=== PATIENT | female | born 1975 | race African-American/Black ===

== ENCOUNTER 2021-04-06 18:50 | Emergency (ER) | payer SELFPAY ==
[2021-04-06] MEDS ORDERED: Ondansetron ODT 4 MG TAB ONE (19:16)
[2021-04-06] MEDS ORDERED: Acetaminophen 500 MG TAB ONE (19:16)
[2021-04-06] MEDS ORDERED: Metoclopramide HCl 10 MG TAB ONE (19:17)
[2021-04-07 17:00] LABS: SARS-CoV-2 PCR by NAA DETECTED (NotDetected)
== END 2021-04-06 20:03 | disposition home or self-care (01) ==
LOC: ERS 18:50
DX: U07.1 COVID-19 (principal); R11.2 Nausea with vomiting, unspecified; M54.9 Dorsalgia, unspecified
CPT/HCPCS: 99283; Q0162; U0003; U0005

== ENCOUNTER 2021-04-12 12:38 | Emergency (ER) | payer SELFPAY ==
[2021-04-12] MEDS ORDERED: Ondansetron ODT 4 MG TAB ONE (12:46)
== END 2021-04-12 14:36 | disposition home or self-care (01) ==
LOC: ERS 12:38
DX: U07.1 COVID-19 (principal)
CPT/HCPCS: 99283; Q0162